=== PATIENT | male | born 1960 | race Caucasian/White ===

== ENCOUNTER 2020-06-07 13:30 | Outpatient (CLI) | payer BC, SELFPAY ==
--- NOTE | ~2020-06-07 | MR_ITS ---
EXAMINATION: MR shoulder RT wo con DATE: 06/07/2020 14:38 INDICATION: Bicipital tendinitis presenting with right shoulder pain. TECHNIQUE: Magnetic resonance imaging (MRI) of the right shoulder was performed without intravenous c ontrast. Sequences included axial PD-weighted FS FSE, coronal oblique PD-weighted FS FSE, coronal obl ique T2-weighted FS FSE, sagittal PD-weighted FS FSE, and sagittal T1-weighted SE. COMPARISON: None. FINDINGS: Coracoacromial arch: The acromion undersurface is curved in morphology (type II). The coracoacromial ligament is normal. M ild to moderate acromioclavicular osteoarthritis with mild subarticular cystic changes and mild infer ior directed osteophytes. Rotator cuff: Minimal 2 mild tendinopathy of the supraspinatus, infraspinatus and subscapularis tendons without dis crete tear. The teres minor tendon is normal. Normal rotator cuff muscle bulk and signal. Biceps tendon, glenoid labrum and glenohumeral cartilage: Long head of the biceps tendon is normal. There is deep chondral ulceration with prominent underlying subarticular cystic changes extending from the posterior to the anteroinferior glenoid. Additional l ess severe subarticular cystic change along the posterior superior and superior rim of the glenoid. P artial-thickness cartilage loss throughout the humeral head with more focal deep chondral ulceration underlying subarticular edema at the posterior superior aspect of the humeral head. Fluid: Small amount of fluid along the long head biceps tendon sheath which is disproportionate to the physi ologic amount of fluid in the glenohumeral joint space consistent with mild bicipital tenosynovitis. No loose osteochondral bodies. No abnormally increased fluid signal at the subacromial/subdeltoid bur sa to suggest bursitis. Bones: Normal marrow signal with no edema, fracture or abnormal marrow replacing process. Mild cystic change at the along the middle facet of the greater tuberosity. IMPRESSION: 1. Moderate glenohumeral osteoarthritis with relatively extensive high-grade chondromalacia at the gl enoid and small region along the posterior superior humeral head. 2. Minimal to mild rotator cuff tendinopathy without discrete tear. 3. Mild bicipital tenosynovitis with normal-appearing long head biceps tendon. Reviewed, dictated and finalized at location B. IMPRESSION: 1. Moderate glenohumeral osteoarthritis with relatively extensive high-grade ch ondromalacia at the glenoid and small region along the posterior superior humer al head. 2. Minimal to mild rotator cuff tendinopathy without discrete tear. 3. Mild bicipital tenosynovitis with normal-appearing long head biceps tendon.
== END 2020-06-07 13:31 | disposition home or self-care (01) ==
PROVIDERS: PCP Family Medicine; Visit Provider Orthopaedic Surgery
DX: M75.21 Bicipital tendinitis, right shoulder (principal); M19.011 Primary osteoarthritis, right shoulder
CPT/HCPCS: 73221

== ENCOUNTER 2021-01-01 14:44 | Outpatient (CLI) | payer OTHER, SELFPAY ==
--- NOTE | ~2021-01-01 | XR_ITS ---
XR ribs RT 2V w CXR 2V DATE: 01/01/2021 15:01 INDICATION: Right chest pain and chronic cough for 3 months TECHNIQUE: PA and lateral chest. 3 views of the right ribs. COMPARISON: 05/29/2018 2 view chest FINDINGS: Heart size is within normal range. No hilar or mediastinal enlargement. No pulmonary infilt rate or consolidation, pleural effusion or pulmonary vascular congestion or pneumothorax. There is evidence of a slightly displaced fracture at the anterolateral aspect of the right sixth rib might be recent. No other apparent rib fracture is noted. Diffuse osteopenia. Diffuse idiopathic skeletal hyperostosis of the thoracic spine. Degenerative spur ring of the thoracic spine. IMPRESSION: Suggestion of slightly displaced anterolateral right sixth rib fracture Diffuse idiopathic skeletal hyperostosis of the thoracic spine Diffuse osteopenia No active cardiopulmonary disease Reviewed, dictated and finalized at location B. IMPRESSION: Suggestion of slightly displaced anterolateral right sixth rib frac ture Diffuse idiopathic skeletal hyperostosis of the thoracic spine Diffuse osteopenia No active cardiopulmonary disease
== END 2021-01-01 14:45 | disposition home or self-care (01) ==
LOC: ANHBWCIMG 14:47
PROVIDERS: PCP Family Medicine; Visit Provider Family Medicine
DX: R07.81 Pleurodynia (principal); M48.14 Ankylosing hyperostosis [Forestier], thoracic region
CPT/HCPCS: 71046; 71100

== ENCOUNTER 2021-01-04 12:18 | Outpatient (CLI) | payer OTHER, SELFPAY ==
[2021-01-04 19:25] LABS: Basophils Percent Auto 0.2 % (0.2-1.2); Eosinophils Absolute Auto 0.1 K/mm3 (0-0.3); Hematocrit 42.7 % (42.0-52.0); Hemoglobin 14.2 g/dL (14.0-18.0); Immature Granulocyte Absolute 0.03 K/mm3 (0.00-0.031); Immature Granulocyte Percent A 0.6 % (0-0.5); Lymphocytes Absolute Auto 0.77 K/mm3 (0.9-3.2); Mean Corpuscular HGB Conc 33.3 g/dl (32-36); Mean Corpuscular Hemoglobin 32.5 pg (26-34); Mean Corpuscular Volume 97.7 fl (80-100); Monocytes Absolute Auto 0.7 K/mm3 (0.1-0.6); Monocytes Percent Auto 14.2 % (2.6-8.5); Neutrophils Absolute Auto 3.3 K/mm3 (1.3-6.7); Platelet Count Result 214 k/mm3 (150-375); Red Blood Count 4.37 M/mm3 (4.6-6.20); Red Cell Distribution Width 11.9 % (11.5-14.5); White Blood Count 4.8 K/mm3 (4.5-10.0)
[2021-01-04 21:06] LABS: Alanine Aminotransferase 27 U/L (4-50); Albumin Level 3.9 g/dL (3.5-5.1); Alkaline Phosphatase 78 U/L (38-126); Anion Gap 8 mmol/L (8-16); Aspartate Amino Transferase 31 U/L (17-59); Bilirubin,Total 0.8 mg/dL (0.2-1.3); Blood Urea Nitrogen 6 mg/dL (9-20); Calcium 8.8 mg/dL (8.4-10.2); Carbon Dioxide 29 mmol/L (22-30); Chloride 100 mmol/L (98-107); Cholesterol 141 mg/dL (0-200); Estimated Glomerular Filt Rate > 60; Glucose 97 mg/dL (65-110); HDL Direct 33 mg/dL; Potassium 4.3 mmol/L (3.4-5.0); Sodium 137 mmol/L (137-145); Triglycerides 71 mg/dL (<150)
[2021-01-04 21:12] LABS: Hemoglobin A1C 5.6 % (<5.7)
[2021-01-04 21:17] LABS: LDL Cholesterol Direct 104 mg/dL
== END 2021-01-04 12:19 | disposition home or self-care (01) ==
LOC: ANHBWCLAB 12:20
PROVIDERS: PCP Family Medicine; Visit Provider Family Medicine
DX: E66.9 Obesity, unspecified (principal); Z00.00 Encounter for general adult medical examination without abnormal findings
CPT/HCPCS: 36415; 80053; 80061; 83036; 85025

== ENCOUNTER 2021-08-28 10:42 | Outpatient (CLI) | payer OTHER, SELFPAY ==
[2021-08-28 20:25] LABS: Hematocrit 44.9 % (42.0-52.0); Hemoglobin 14.6 g/dL (14.0-18.0); Mean Corpuscular HGB Conc 32.5 g/dl (32-36); Mean Corpuscular Hemoglobin 32.2 pg (26-34); Mean Corpuscular Volume 99.1 fl (80-100); Mean Platelet Volume 10.2 fl (7.4-10.4); Platelet Count Result 248 k/mm3 (150-375); Red Blood Count 4.53 M/mm3 (4.6-6.20); Red Cell Distribution Width 12.6 % (11.5-14.5); White Blood Count 5.7 K/mm3 (4.5-10.0)
[2021-09-03 11:17] LABS: Testosterone Free 39.3 pg/mL (35.0-155.0); Testosterone Total 378 ng/dL (250-1100)
== END 2021-08-28 10:43 | disposition home or self-care (01) ==
PROVIDERS: PCP Family Medicine; Visit Provider Family Medicine
DX: R53.83 Other fatigue (principal)
CPT/HCPCS: 36415; 84402; 84403; 84443; 85027

== ENCOUNTER 2023-03-26 07:47 | Outpatient (CLI) | payer OTHER, SELFPAY ==
[2023-03-26 21:19] LABS: Cholesterol 181 mg/dL (0-200); HDL Direct 32 mg/dL; Triglycerides 251 mg/dL (<150)
[2023-03-26 21:33] LABS: LDL Cholesterol Direct 91 mg/dL
[2023-03-26 21:51] LABS: Prostate Specific Antigen 1.6 ng/mL (< OR = 4.0)
[2023-03-26 23:25] LABS: Hemoglobin A1C 5.5 % (<5.7)
== END 2023-03-26 07:48 | disposition home or self-care (01) ==
PROVIDERS: PCP Family Medicine; Visit Provider Family Medicine
DX: R07.89 Other chest pain (principal); E66.01 Morbid (severe) obesity due to excess calories; Z68.41 Body mass index [BMI] 40.0-44.9, adult; G47.30 Sleep apnea, unspecified; Z00.00 Encounter for general adult medical examination without abnormal findings
CPT/HCPCS: 36415; 80061; 83036; 84153; G0103

== ENCOUNTER 2023-05-20 02:22 | Day surgery (SDC) | payer OTHER, SELFPAY ==
[2023-04-23 10:19] VITALS: BMI 40.7
--- NOTE | 2023-05-16 14:01 | SUR.OPER ---
Patient called regarding upcoming procedure. Reviewed preop instructions, appointment times, and procedure prep.
[2023-05-20 07:35] VITALS: BP 164/91; PULSE 63; RESP 18; TEMP 36.7; O2SAT 95; BMI 41.8
[2023-05-20] MEDS: LACTATED RINGERS 1,000 ML 150 ML IV CONT (07:59)
--- NOTE | 2023-05-20 08:22 | WPDANESEPPF ---
Anes - Initial Pre Proc Eval Procedure: Operation Date: 05/20/23 08:30 Proposed Procedures p Screening Colonoscopy - Dylan Granger MD Date/Time: 05/20/23 08:22 Surgeon: Dylan Granger MD Pre Op Diagnosis: neoplasm screening Patient Data Age: 63 Gender: M Height: 1.83 m Weight: 139.7 kg Last Vital Signs Temp 36.7 C 05/20/23 07:35 Pulse 63 05/20/23 07:35 Resp 18 05/20/23 07:35 BP 164/91 H 05/20/23 07:35 Pulse Ox 95 05/20/23 07:35 O2 Del Method Room Air 05/20/23 07:35 Allergies Allergy/AdvReac Type Severity Reaction Status Date / Time No Known Allergies Allergy Verified 05/20/23 07:44 Home Medications Medication Instructions Recorded Confirmed Type methylprednisolone 4 mg tablets in See Rx Instructions PO PER PKG DIR 04/29/23 05/20/23 Rx a dose pack (dilitronicsrol (Juventino)) #21 ea Elderberry Gummies 50 mg BYMOUTH DAILY 04/30/23 05/20/23 History ascorbic acid (vitamin C) 550 550 mg PO DAILY 04/30/23 05/20/23 History mg/1.1 gram (scoop) oral powder [id number] 300 mcg-K 60 1 tablet PO DAILY 04/30/23 05/20/23 History mcg-lycop 600 mcg-lutein 300 mcg tablet (Men 50 Plus Multivitamin) Patient hx anesthesia problems: none Family hx anesthesia problems: none Results Review: All pre-operative results and documents have been reviewed as part of the pre-operative evaluation. [facility] Past Medical History Medical History (Updated 05/20/23 @ 08:24 by Rangel Ayala MD) Morbid obesity DIEGO (obstructive sleep apnea) Osteoarthritis of shoulders, bilateral Sprain of left acromioclavicular joint, initial encounter Surgical History Surgical History History of knee replacement Social History Social History Years smoked: 10 Smoking status: Former smoker Tobacco type: smokeless tobacco Second hand tobacco smoke exposure: No Smoking end date: 03/24/04 Alcohol intake: current Drinks per week: 28 Substance use: never Substance use type: does not use Do You Feel Safe in your Home?: Yes Lack of Transportation: No Lack of Food: Never True Current Housing: I Have Housing Concerned About Future Housing: No Difficulty Paying Gas/Electric Bills: No Difficulty Paying for Meds: No Currently Unemployed: No Education: High School Diploma/GED Difficulty w/ Childcare or Family Care: No Living arrangements: with family Occupation/Education: occupation Additional occupation/education comments: tank truck driver Spiritual care concerns: No Anes - Eval Final PreProcedure Day of Procedure 05/20/23 08:22 Patient weight: morbidly obese Heart: regular rate and rhythm Lungs: clear to auscultation Airway: Mallampati scale class II Neurological: alert and oriented Last oral intake: >/= 8 hours ASA classification: III Emergent: no Anesthetic plan: proceed Anesthesia type and monitoring: general GIVS and standard monitoring Results Review: All pre-operative results and documents have been reviewed as part of the pre-operative evaluation. Informed Consent: The patient's anesthetic plan and its attendant risks and benefits were discussed with the patient/family/POA. Questions were solicited and answers provided to the satisfaction of the patient/family/POA.
--- NOTE | 2023-05-20 08:30 | PM.HPGS ---
History of Present Illness History of Present Illness Consent: Risks, benefits, and alternatives have been discussed and questions answered. Patient agrees to proceed with procedure. Chief complaint: neoplasm screening Narrative: Jhon Landeros is a 63 year old male with previous colon polyp, last colonoscopy 7 years ago Review of Systems Constitutional: Constitutional: Denies headache(s) and Denies weakness Eyes: Eyes: Denies blurry vision ENT: Reports Normal hearing present, Denies headache(s) and Denies neck pain Cardiovascular: Cardiovascular: Denies chest pain and Denies dyspnea Respiratory: Respiratory: Denies dyspnea Gastrointestinal: Gastrointestinal: Reports no additional gastrointestinal complaints Genitourinary: Genitourinary: Denies dysuria Musculoskeletal: Musculoskeletal: Denies neck pain Integumentary/Breasts: Skin/Breast: Denies dry skin Neurologic: Reports Normal hearing present, Denies headache(s) and Denies weakness Psychiatric: Psychiatric: Denies anxiety Endocrine: Endocrine: Denies change in body appearance Hematologic/Lymphatic: Hematologic/Lymphatic: Denies easy bleeding Allergic/Immunologic: Allergic/Immunologic: Denies urticaria PMFSH Past Medical History Medical History (Updated 05/20/23 @ 08:31 by Dylan Granger MD) Colon polyp Morbid obesity DIEGO (obstructive sleep apnea) Osteoarthritis of shoulders, bilateral Sprain of left acromioclavicular joint, initial encounter Surgical History Surgical History History of knee replacement Social History Social History Years smoked: 10 Smoking status: Former smoker Tobacco type: smokeless tobacco Second hand tobacco smoke exposure: No Smoking end date: 03/24/04 Alcohol intake: current Drinks per week: 28 Substance use: never Substance use type: does not use Do You Feel Safe in your Home?: Yes Lack of Transportation: No Lack of Food: Never True Current Housing: I Have Housing Concerned About Future Housing: No Difficulty Paying Gas/Electric Bills: No Difficulty Paying for Meds: No Currently Unemployed: No Education: High School Diploma/GED Difficulty w/ Childcare or Family Care: No Living arrangements: with family Occupation/Education: occupation 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 Spiritual care concerns: No Meds Home Medications and Allergies Home Medications Medication Instructions Recorded Confirmed Type methylprednisolone 4 mg tablets in See Rx Instructions PO PER PKG DIR 04/29/23 05/20/23 Rx a dose pack (Medrol (Juventino)) #21 ea Elderberry Gummies 50 mg BYMOUTH DAILY 04/30/23 05/20/23 History ascorbic acid (vitamin C) 550 550 mg PO DAILY 04/30/23 05/20/23 History mg/1.1 gram (scoop) oral powder [id number] 300 mcg-K 60 1 tablet PO DAILY 04/30/23 05/20/23 History mcg-lycop 600 mcg-lutein 300 mcg tablet (Men 50 Plus Multivitamin) Allergies Allergy/AdvReac Type Severity Reaction Status Date / Time No Known Allergies Allergy Verified 05/20/23 07:44 Vital Signs Vital Signs - 24 hr 05/20/23 07:35 Temperature 98.1 F Pulse Rate 63 Respiratory Rate 18 Blood Pressure 164/91 H Pulse Oximetry 95 Oxygen Delivery Room Air Exam Const: General: comfortable and no acute distress HENMT: Face/Nose/Sinus: Normal nares present Eyes: General: appearance normal, both eyes and all related structures Neck: Neck: no JVD Resp: Auscultation: clear to auscultation bilaterally Cardio: Rate: regular rate Rhythm: regular rhythm GI: Inspection: non-distended GI Palp: Yes Soft to palpation Skin: General skin exam: normal color Neuro: General: gait normal Speech: normal speech Extrem: General: normal to inspection Psych: Mental Status: mental status grossly normal Assessment and Plan Assessme
[2023-05-20 09:00] VITALS: BP 111/68; PULSE 60; RESP 17; O2SAT 95
[2023-05-20 09:10] VITALS: BP 121/69; PULSE 63; RESP 17; O2SAT 97
[2023-05-20 09:20] VITALS: BP 124/70; PULSE 62; RESP 18; O2SAT 97
== END 2023-05-20 09:48 | disposition home or self-care (01) ==
PROVIDERS: PCP Nurse Practitioner Adult Health; Visit Provider Internal Medicine Gastroenterology
PROC: 0DJD8ZZ Inspection of Lower Intestinal Tract, Via Natural or Artificial Opening Endoscopic (ICD-10-PCS; CPT 45378; principal; 2023-05-20 08:30)
DX: Z12.11 Encounter for screening for malignant neoplasm of colon (principal); D12.3 Benign neoplasm of transverse colon; K57.30 Diverticulosis of large intestine without perforation or abscess without bleeding; G47.33 Obstructive sleep apnea (adult) (pediatric); E66.01 Morbid (severe) obesity due to excess calories; Z68.41 Body mass index [BMI] 40.0-44.9, adult; Z87.891 Personal history of nicotine dependence
CPT/HCPCS: 45385; 88305; J2704; J7120

== ENCOUNTER 2023-12-03 10:54 | Outpatient (CLI) | payer OTHER, SELFPAY ==
--- NOTE | ~2023-12-03 | XR_ITS ---
EXAMINATION: XR shoulder RT min 2V DATE: 12/03/2023 11:19 INDICATION: Primary osteoarthritis, right shoulder. TECHNIQUE: 4 views of right shoulder were obtained. COMPARISON: Right shoulder radiographs 02/07/2023 FINDINGS: Bone alignment is normal. No fracture. There is moderate osteoarthritis of glenohumeral britt nt and acromioclavicular joint. IMPRESSION: 1. Polyarticular osteoarthritis. Reviewed, dictated and finalized at location A.
== END 2023-12-03 10:55 | disposition home or self-care (01) ==
LOC: ANHIMG 10:58
PROVIDERS: PCP Family Medicine; Visit Provider Orthopaedic Surgery
DX: M19.011 Primary osteoarthritis, right shoulder (principal)
CPT/HCPCS: 73030

== ENCOUNTER 2024-03-09 08:46 | Outpatient (CLI) | payer OTHER, SELFPAY ==
[2024-03-09 19:48] LABS: Hematocrit 44.2 % (42.0-52.0); Hemoglobin 14.2 g/dL (14.0-18.0); Mean Corpuscular HGB Conc 32.1 g/dl (32-36); Mean Corpuscular Hemoglobin 32.6 pg (26-34); Mean Corpuscular Volume 101.6 fl (80-100); Mean Platelet Volume 10.6 fl (7.4-10.4); Platelet Count Result 192 k/mm3 (150-375); Red Blood Count 4.35 M/mm3 (4.6-6.20); Red Cell Distribution Width 12.6 % (11.5-14.5); White Blood Count 5.5 K/mm3 (4.5-10.0)
[2024-03-09 20:04] LABS: Alanine Aminotransferase 31 U/L (6-50); Alkaline Phosphatase 67 U/L (38-126); Anion Gap 3 mmol/L (4-12); Aspartate Amino Transferase 50 U/L (17-59); Bilirubin,Total 0.6 mg/dL (0.2-1.3); Blood Urea Nitrogen 17 mg/dL (9-20); Calcium 9.2 mg/dL (8.4-10.2); Carbon Dioxide 27 mmol/L (22-30); Chloride 111 mmol/L (98-107); Estimated Glomerular Filt Rate > 60; Glucose 157 mg/dL (65-110); Potassium 4.3 mmol/L (3.4-5.0); Sodium 141 mmol/L (137-145)
== END 2024-03-09 08:47 | disposition home or self-care (01) ==
LOC: ANHBWCLAB 08:48
PROVIDERS: PCP Family Medicine; Visit Provider Family Medicine
DX: Z00.00 Encounter for general adult medical examination without abnormal findings (principal)
CPT/HCPCS: 36415; 80053; 85027